=== PATIENT | female | born 1975 | race Caucasian/White ===

== ENCOUNTER 2025-03-07 22:24 | Emergency (ER) | payer MEDICARE, SELFPAY ==
--- OUTSIDE RECORDS SUMMARY | 2024-11-17 04:40 | XMS_ITS ---
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 Name Role Phone Octavio Arnold Primary Care Provider REASON FOR VISIT 4 week F/U Social History Sex Assigned At : Social History Observation Description Sex Assigned At Female Encounters Encounter Location Date Provider Diagnosis [address] [id number] 11/17/2024 Octavio Arnold Plan Of Treatment No Information Progress Notes * Jacinda ADAMSB:1975 (50 yo F)Acc No.[id number]:11/17/2024 UNLOCKED PROGRESS NOTE Patient: Janet TRONCOSO Provider: Karen Arnold DNP, REJI-SUJATA :1975 A ge:49 Y S ex:Female Date:11/17/2024 Address:[address] [place], [place] [id number] Subjective: * Chief Complaints: * 1 . 4 week F/U. * Medical History: Objective: * Vitals: Assessment: Plan: * Treatment: * * Electronic signature of Adonis Arnold APRN, [id number] on 03/08/2025 at 02:14 AM CDT Sign off status: Pending * Provider: Karen Arnold DNP, SIMIP-BC Date: 0 11/17/2024 Generated for Nic au/Yong/Bhaktismitting on: 1 02:14 AM CDT
--- NOTE | ~2025-03-07 | CT_ITS ---
EXAMINATION: CT lumbar spine wo con DATE: 03/08/2025 00:17 INDICATION: Low back injury. TECHNIQUE: Computed tomography (CT) of the lumbar spine was performed without intravenous contrast. Automated exposure control and iterative reconstruction technique were employed. The dose-length product was 264.04 mGy-cm. COMPARISON: None FINDINGS: There is a stent graft in abdominal aorta. There are cysts in right kidney measuring up to 3.0 cm. There is 6 degrees levocurvature of lumbar spine. There is a compression fracture of L2 with less than 1/5 loss of height. There is mildly decreased disc height at L2-L3. The following disc levels are specifically discussed: L1-L2: The disc is bulging. There is mild bilateral facet joint osteoarthritis. There is mild bilateral neural foraminal stenosis. There is mild central canal stenosis. L2-L3: The disc is bulging. There is mild bilateral facet joint osteoarthritis. There is mild bilateral neural foraminal stenosis. There is mild central canal stenosis. L3-L4: The disc is bulging. There is mild bilateral facet joint osteoarthritis. There is mild bilateral neural foraminal stenosis. There is mild central canal stenosis. L4-L5: The disc is bulging. There is severe bilateral facet joint osteoarthritis. There is mild bilateral neural foraminal stenosis. There is mild central canal stenosis. L5-S1: The disc is bulging. There is severe bilateral facet joint osteoarthritis. There is mild bilateral neural foraminal stenosis. There is mild central canal stenosis. IMPRESSION: 1. L2 compression fracture. I called this result to Dr. Fang. 2. Mild lumbar spondylosis. Reviewed, dictated and finalized at location E.
[2025-03-07 22:26] VITALS: BP 175/93; PULSE 117; RESP 18; TEMP 36.8; O2SAT 100
--- NOTE | 2025-03-08 00:07 | PC.NURSE ---
ERP verbalized order of CT without contrast of the spine. This RN ordered.
[2025-03-08] MEDS: HYDROcodone/acetaminophen (*CRX) 5-325 MG TABLET 1 TAB PO (01:11)
[2025-03-08] MEDS: KETOROLAC 10 MG TABLET PO (01:11)
--- OUTSIDE RECORDS SUMMARY | 2025-03-08 02:14 | XMS_ITS | Clinical Summary ---
Author Organization 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 Gender Identity Not on file Sexual Orientation Not on file Plan of Treatment Health Maintenance Due Date Last Done Comments Cervical Cancer Screening Pa p Smear (Age 30 to 64) Every 3 Years 1974 Colorectal Cancer Screening Colonoscopy (10 Years) 1974 Annual Physical 1977 Hepatitis C 01/29/1992 DTaP, Tdap and Td Vaccines ( 1 - Tdap) 1993 Hepatitis B Vaccines (1 of 3 - 19+ 3-dose series) 1993 Cervical Cancer Screening Pa p with HPV Testing (Age 30 to 64) Every 5 Years 01/29/2004 Cervical Cancer Screening with HPV 01/29/2004 Mammogram Screening 2014 Pneumococcal Vaccine: 50+ Ye ars (1 of 1 - PCV) 01/29/2024 Zoster Vaccines (1 of 2) 01/29/2024 COVID-19 Vaccine ( - 2023-2 5 season) 2025 Influenza Adult (#1) 2025 Meningococcal B Vaccine Aged Out No l onger eligible based on patient's age to complete this topic Meningococcal Vaccine Aged Out No zach nichole eligible based on patient's age to complete this topic RSV Immunizations Under 20 Months Aged Out No longer eligible based on patient's age to complete this topic Insurance 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
--- OUTSIDE RECORDS SUMMARY | 2025-03-08 02:15 | XMS_ITS | Data Portability ---
Author Organization [place] - [employer], Main Office Address [address] [place] [address] Care Team Providers Care Route Sales Manager Name Role Phone MARIO GARCIA Primary Care Provider [phone] MARIO GARCIA Referring Provider HODA MILLER Podiatry Doctor Assessment Encounter Date Assessment Date Assessment LastModified by Organization Details LastModified Time 09/11/2022 09/11/2022 HPI: 47-year-old female came in today for evaluation of her left shoulder pain and arm pain. Patient has been having symptoms in the left shoulder for about 6 months that have progressively worsened. She has noticed that the shoulder is more painful as well as more staff. She notes she is lacking range of motion in the shoulder and it is painful with range of motion. She has also been having some symptoms of pain radiating down the arm into the fingers. She will have some tingling in the fingers. She has been waking up with her left hand asleep 2 or 3 times a week at this point. she feels that all 5 of her fingers feel asleep. She will occasionally get the symptoms during the day. Patient is unable to take anti-inflammator ies because she is on Plavix chronically due to stents placed in her iliac artery on the left in the past. Patient states that she was seen for this left shoulder in the past and was told she may have some early tearing of the rotator. Looking back at her x-rays I do see an MRI scan just x-rays that were done 2016 in the shoulder. Patient has had no trauma or injury to the left shoulder. She was having no symptoms in the shoulder and till they spontaneously started 6 months ago. Physical exam: 47-year-old female she has active elevation left shoulder to 135 external rotation is to 45 internal rotation is to the left buttocks. In comparison her right shoulder she elevates to 150 externally rotates to 90 internally rotates to T10. With range of motion left shoulder she has moderate pain. She has some mild weakness with external rotation well as abduction strength testing associated with moderate pain. Neck has full range of motion without discomfort. Negative Spurling's maneuver. Has a negative Tinel's over the median nerve as well as the cubital tunnel. She does have a mildly positive carpal compression test on left. 2+ radial pulse. She has normal sensation to light touch to all of her fingers in the left hand as well as her forearm. Impression: 47-year-old female who has a left frozen shoulder. She is diabetic which predispose her to this. Discussed with the etiology of frozen shoulder With her. As an issue management for the frozen shoulder have recommended fluoroscopic guided injection into the glenohumeral joint and formal physical therapy to start about a week after that. We will set these with was up for her. Patient also has mild symptoms and physical exam findings of early carpal tunnel. She notes that she is waking with her hand asleep and I recommended initially tried a cock-up wrist splint at night to see if this improves her symptoms. The other possibility is that she may be having some radicular symptoms from the neck but on physical exam today that is very benign. Certainly having the stiff shoulder could aggravate the neck due to the patient compensating for the stiffness in the shoulder and overuse of the neck as well. I think at this point getting her improved from the frozen shoulder is 1st and then re-examining how she is doing after that and proceed from there. If she continues to have weakness in the shoulder once the stiffness has been improved upon the next step would be obtaining an MRI scan of the shoulder. If she continues to have symptoms down the entire arm and continues had numbness tingling in the fingers may need to proceed with EMG study as well as MRI scan of the. We will see her back in 4 weeks reassessment. 30 minutes was spent treatment patient more half of this in [id number] conversation. [email or web address] Not available 09/11/2022 13:04:25 10/09/2022 10/09/2022 patient returns. She presented on 09/11/2022 and saw Pankaj Hastings. She had pronounced decrease in range of motion particularly internal rotation of the left shoulder with clinical appearance of adhesive capsulitis. She does have diabetes mellitus. She does not take nonsteroidal anti-inflammator y medication because of chronic kidney disease. A fluoroscopic guided cortisone injection was performed on September 22. Images documented intra-articular placement of the needle and unfortunately she had no relief the pain with this injection. She had 1 visit of physical therapy this morning her 1st visit. She was given a cock-up splint to wear at night for possible carpal tunnel syndrome and she has not noticed as much numbness at night. She is still having difficulty sleeping because of her shoulder pain. Her chief complaint her worst pain is in the lateral shoulder. Second worst medial clavicle 3rd worst trapezius to the base of her neck 4th the posterior scapular region and sometimes the pain will shoot down her arm from her shoulder to all fingers and she will noted tingling in all 5 fingers. She does notice tingling anywhere else. I asked her to pay attention to which fingers she notes tingling when she feels is I which fingers seem to be the endpoint of her pain when her pain radiates to the fingers which can be helpful particularly if there is a radiculopathy consideration. Patient did have an MRI scan of her cervical spine in 2016 with loss of cervical lordosis and no significant central canal is stenosis or severe degenerative disc disease On exam today she had elevation 140 passively with rather severe pain in the posterior rotator cuff area. The same with external rotation to 50 and internal rotation to the buttock. Her range of motion is identical to 1 week ago. She had normal light touch sensation throughout the left upper extremity including the fingertips today. Negative Tinel's over the median nerve today negative carpal tunnel compression negative Phalen's. Neck range of motion with full extension and Spurling's to the left cause some soreness at the left base of her neck. No tingling or dysesthesias into the left shoulder or left upper extremity. She had moderately severe tenderness over the anterior lateral and posterior subdeltoid bursa on palpation no redness swelling or warmth. Impression: Patient presents with adhesive capsulitis symptoms and there may be a rotator cuff tendinitis component as well. She has had a cortisone shot in the left shoulder for rotator cuff tendinitis symptoms and partial tear approximately 6 years ago she recalls. I have recommended trying a cortisone shot in the subacromial space today. Studies show that injection of the subacromial space is sometimes necessary for treatment of frozen shoulder and I think that would be the case here. I have discussed risk of side effects including the risk of infection and that her blood sugars may go up for a few days following the injection. After ChloraPrep prep 20 mg of Kenalog and 4 cc of 0.5% ropivacaine were injected in the subacromial space successfully and I can not feel the subdeltoid bursa bulge anteriorly and laterally with the injection and 5 minutes after the injection I could passively elevate her shoulder to 150 with only mild discomfort with seem to give in immediate positive response. She is scheduled to resume physical therapy next week. I will see her back in 6 weeks assess her progress with this. 30 minutes were spent in total care this patient more than half the time spent in [id number] care. Not available 10/09/2022 14:34:13 11/27/2022 11/27/2022 patient returns for follow-up of her left shoulder. She was seen 6 weeks ago with the presumed diagnosis of adhesive capsulitis left shoulder. A cortisone shot 6 weeks ago In the subacromial space did help her pain substantially but 2 weeks ago her pain recurred. She continues to have difficulty reaching overhead reaching around her back and still can not lay on the left shoulder. Some days she has constant pain all day and she also has pain lifting. On exam today she had active elevation 135 passed to 150 internal rotation was L4 with pain, external rotation was to 60 without significant pain. Adduction is difficult for her and that she could not do a bear hug test very well as a result because of pain trying to do so. She has mild weakness with thumbs down abduction strength testing normal external rotation strength testing. She could not do a subscap liftoff to tightness. There is no redness swelling or warmth about the shoulder Impression: Differential diagnosis includes persistent adhesive capsulitis but also includes other pathology such as rotator cuff tear. I have recommended obtaining an MRI scan left shoulder. I will see her back after the test. 20 minutes were spent in total care this patient more than half this time spent in [id number] care. Not available 12/08/2022 13:47:01 Plan of Treatment Reminders Order Date Submit Date Provider Last Modified By Organization Details Last Modified Time Details Appointments None recorded. Lab lipid panel, serum 2022 023 [email or web address] [facility], [address] [place], [address], 3 17:38:50 TSH + free T4, serum 2022 023 [email or web address] [facility], [address] [place], [address], 3 17:38:50 HbA1c (hemoglobi n A1c), blood 2022 023 [facility], [address] [place], [address], 3 02:24:29 CMP, serum or plasma 2022 023 [facility], [address] [place], [address], 3 15:46:14 microalbum in/creatin ine, mass ratio, urine 2022 023 [facility], [address] [place], [address], 3 14:11:45 Referral physical therapist referral - * START A WEEK AFTER FLUORO INJECTION [email or web address] [facility], [address] [place], [address], 3 16:26:24 Procedures injection/ aspiration joint/burs a (PROC) - in office procedure, administer ed by provider 2022 023 [email or web address] In-Office Order, Internal Use Only DO Not Attach Compendium DO Not Attach Compendium, Do Not Delete/merge, [address] 3 14:48:59 fluoroscop ic guided injection (PROC) - L-GLENOHUM ERAL JOINT WITH 80MG DEPOMEDROL AND 4CC 1% LIDOCAINE 2022 023 [facility] ([facility] Scheduling), [address] [facility], [place], [place], [address], 3 10:10:32 Surgeries None recorded. Imaging XR, shoulder [address], [address] [facility], [address], [place], [address], 3 15:42:53 bone density 2022 023 [facility], [address] [facility], [place], [place], [address], 3 13:00:20 Medication Orders Kenalog 10 mg/mL suspension for injection [address] [id number], [address] , [place], [place], [id number], 3 16:44:43 ropivacain e (PF) 5 mg/mL (0.5 %) injection solution [address] [id number], [address], [place], [place], [id number], 3 16:44:43 Trulicity 1.5 mg/0.5 mL subcutaneo us pen injector 2022 023 [id number], [address], [place], [place], [id number], 3 15:47:23 Gvoke HypoPen 2-Pack 1 mg/0.2 mL subcutaneo us auto-injec tor 2022 023 [id number], [address], [place], [place], [id number], 15:55:12 Patient TargetsNo targets recorded. Patient InstructionsNo instructions recorded. Reason for Referral Physical Therapist Referral for Adhesive capsulitis of left shoulder * START A WEEK AFTER FLUORO INJECTION Referring Physician: Bill Hastings, Orthopedic Surgery, Encounter Date: 09/11/2022 Results Created Date Observation Date Name Description Value Unit Range Abnormal Flag Note LastModifiedBy Organization Detail LastModifiedTime 08/29/1908/28/2022 COMPR EHENS KEVEN METAB OLIC PANEL sodium 137 mmol/ L 137-14 5 Not Available [facility] (Lab) [address] [place], [address], 08/28/2022 15:46:14 08/29/1908/28/2022 COMPR EHENS KEVEN METAB OLIC PANEL potassium 4.5 mmol/ L 3.5-5. 1 Not Available [facility] (Lab) [address] [place], [address], 08/28/2022 15:46:14 08/29/1908/28/2022 COMPR EHENS KEVEN METAB OLIC PANEL chloride 101 mmol/ L 98-[address] [facility] (Lab) [address] [place], [address], 08/28/2022 15:46:14 08/29/1908/28/2022 COMPR EHENS KEVEN METAB OLIC PANEL carbon dioxide 27 mmol/ L 22-[address] [facility] (Lab) [address] [place], [address], 08/28/2022 15:46:14 08/29/1908/28/2022 COMPR EHENS KEVEN METAB OLIC PANEL anion gap 13.5 mmol/ L 14-[address] [facility] (Lab) [address] [place], [address], 08/28/2022 15:46:14 08/29/1908/28/2022 COMPR EHENS KEVEN METAB OLIC PANEL glucose 159 mg/dL 70-[address] [facility] (Lab) [address] [place], [address], 08/28/2022 15:46:14 08/29/19 23 08/28/2022 COMPR EHENS KEVEN METAB OLIC PANEL BUN 14 mg/dL 8-[address] [facility] (Lab) [address] [place], [address], 08/28/2022 15:46:14 08/29/1908/28/2022 COMPR EHENS KEVEN METAB OLIC PANEL creatinine 1.28 mg/dL 0.66-1 [address] [facility] (Lab) [address] [place], [address], 08/28/2022 15:46:14 08/29/1908/28/2022 COMPR EHENS KEVEN METAB OLIC PANEL GFR 45 Refer ence Range : [place] ge GFR Healt hy Adult : >60 mL/mi n/1.7 3 m2 Chron ic Kidne y Disea se: 15-60 mL/mi n/1.7 3 m2 Kidne y Failu re: <15/m L/min /1.73 m2 www.n iddk. nih.g ov The MDRD study equat ion has not been valid ated in child bela <18 years of age; pregn ant women ; the elder ly >85 years of age; or in some racia l or ethni c subgr oups, such as Hispa nics. Outsi de the valid ated kyler eters , estim ated GFR is less accur ate, requi ring clini jaleesa judgm ent on a case- by-ca se basis . Clini jaleesa inter preta tion for other races and ages must be made by the clini paxton. The MDRD study equat ion has not been valid ated for the evalu ation of serum creat inine relat ed to nutri marsha l statu s or medic ation usage . For perso ns <18 years of age, a pedia tric GFR calcu lator is avail able on the [facility] websi te: https ://joe rosales.lbanca pizarro/earl aguiar s/kdo qi/gf r_cal culat or Not Available [facility] (Lab) [address] [place], [address], 08/28/2022 15:46:14 08/29/19 23 08/28/2022 COMPR EHENS KEVEN METAB OLIC PANEL alkaline phosphatase 76 U/L 38-126 Not Available [facility] (Lab) [address] [place], [address], 08/28/2022 15:46:14 08/29/19 23 08/28/2022 COMPR EHENS KEVEN METAB OLIC PANEL alanine aminotransfe rase 21 U/L 0-35 Not Available [facility] (Lab) [address] [place], [address], 08/28/2022 15:46:14 08/29/19 23 08/28/2022 COMPR EHENS KEVEN METAB OLIC PANEL aspartate aminotransfe rase 22 U/L 15-37 Not Available [facility] (Lab) [address] [place], [address], 08/28/2022 15:46:14 08/29/19 23 08/28/2022 COMPR EHENS KEVEN METAB OLIC PANEL bilirubin, total 0.20 mg/dL 0.20-[address] [facility] (Lab) [address] [place], [address], 08/28/2022 15:46:14 08/29/19 23 08/28/2022 COMPR EHENS KEVEN METAB OLIC PANEL calcium 9.2 mg/dL 8.4-[address] [facility] (Lab) [address] [place], [address], 08/28/2022 15:46:14 08/29/19 23 08/28/2022 COMPR EHENS KEVEN METAB OLIC PANEL total protein 6.8 g/dL 6.3-8. [address] [facility] (Lab) [address] [place], [address], 08/28/2022 15:46:14 08/29/19 23 08/28/2022 COMPR EHENS KEVEN METAB OLIC PANEL albumin 4.0 g/dL 3.4-5. [address] [facility] (Lab) [address] [place], [address], 08/28/2022 15:46:14 08/29/19 23 08/28/2022 COMPR EHENS KEVEN METAB OLIC PANEL globulin 2.8 g/dL 2.6-4. [address] [facility] (Lab) [address] [place], [address], 08/28/2022 15:46:14 08/29/19 23 08/28/2022 COMPR EHENS KEVEN METAB OLIC PANEL A/G ratio 1.4 ratio 1.0-2. [address] [facility] (Lab) [address] [place], [address], 08/28/2022 15:46:14 08/29/19 23 08/28/2022 LIPID PANEL cholesterol 142 mg/dL 140-19 9 NIH JOAN NSUS RECOM MENDA TION FOR BETH STERO L: ADULT CHILD LOW RISK: <200 <170 BORDE RLINE : <200- 239 ----- HIGH RISK: >240 >[address] [facility] (Lab) [address] [place], [address], 08/28/2022 15:46:17 08/29/1908/28/2022 LIPID PANEL triglyceride s 144 mg/dL 0-150 NIH JOAN NSUS REPOR T RECOM MENDA TION FOR TRIGL YCERI GERMAINE: ADULT CHILD LOW RISK: <150 ----- BODER LINE: 150-1 99 ----- HIGH RISK: >200 ----- Not Available [facility] (Lab) [address] [place], [address], 08/28/2022 15:46:17 08/29/1908/28/2022 LIPID PANEL HDL cholesterol 54 mg/dL 40- Not Available [facility] (Lab) [address] [place], [address], 08/28/2022 15:46:17 08/29/1908/28/2022 LIPID PANEL LDL cholesterol, calculated 59 mg/dL 0-130 NIH JOAN NSUS REPOR T RECOM MENDA TIONS FOR LDL: ADULT CHILD LOW RISK <130 <110 (OPTI MAL LDL) <100 ----- SP RLINE : 130-1 59 ----- HIGH RISK: >160 >130 A TRIGL YCERI DE RESUL T >400 INVAL IDATE S THE CALCU LATIO N FOR LDL FRACT IONAT ION - THE LDL RESUL T WILL NOT BE REPOR JULIO C. Not Available [facility] (Lab) [address] [place], [address], 08/28/2022 15:46:17 08/29/1908/28/2022 MICRO ALBUM IN RANDO M URINE microalbumin , urine 10.3 mg/L 0.0-[address] [facility] (Lab) [address] [place], [address], 08/28/2022 16:44:34 08/29/1908/28/2022 T4 FREE free T4 0.87 NG/dL 0.78-[address] [facility] (Lab) [address] [place], [address], 08/28/2022 17:14:07 08/29/1908/28/2022 TSH thyroid-stim ulating hormone 1.770 uIU/m L 0.465- 4.[address] [facility] (Lab) [address] [place], [address], 08/28/2022 17:26:15 08/29/19 23 08/28/2022 HEMOG LOBIN A1C HA1C 7.6 % 4.0-6. 0 high Diabe marion Alfonzo he Crite maury: <5.7% Consi stent with absen ce of diabe marion 5.7-6 .4% Consi stent with incre ased risk for diabe marion (pred iabet es) >OR=6 .5% Consi stent with diabe marion REFER ENCE: Diabe marion Care 2016, 39(Robertson ppl.1 ):s13 -s22 [address] [facility] ([facility]) [address] [place], [address], 08/28/2022 19:57:54 09/09/19 23 09/08/2022 DEXA, axial skele ton [facility] [address] [place] [address] Patien t Name: JANET ADAMS Access ion #: [id number] Sex: F : 1974 8 Locati on: RAD Attend ing Physic bj: DORIAN JAY Orderi ng Physic bj: DORIAN JAY Exam Date: 09/09/19 10:35 AM Exam Name: XR DEXA-H IPS PELVIS SPINE Admitt ing Diagno sis(es ): RADIOL OGY REPORT - FINAL EXAM: XR DEXA-H IPS PELVIS SPINE HISTOR Y: MENOPA USAL 47-yea r-old female with osteop orosis screen ing. COMPAR DAISY: None availa ble. TECHNI QUE: Dual energy x-ray of absorp tion examin ation of the bilate ral hips and lumbar spine in AP projec tion was perfor med. FINDIN GS: Lumbar Spine (L1-L4 ): The mean bone minera l densit y is 1.024 g/cm2 hydrox yapati te, correl ating with a T-scor e of -1.4. Bilate ral hips: The mean bone minera l densit y is 0.810 g/cm2 calciu m hydrox yapati te, correl ating with a T-scor e of -1.6. Page 1 of 2 [facility] Patimargo t Name: JANET ADAMS Access ion #: [id number] Sex: F : 1974 8 Exam Date: 09/09/19 10:35 AM Exam Name: XR DEXA-H IPS PELVIS SPINE Admitt ing Diagno sis(es ): IMPRES SEKOU: 1. The patien t's lumbar spine T-scor e is consis tent with osteop enia. 2. The patien t's bilate ral hip T-scor e is consis tent with osteop enia. Accord ing to the World [employer] Organi zation , T-scor e values greate r than -1.0 are normal , values betwee n -1.0 and -2.5 are catego rized as osteop enia, T-scor e of -2.5 or more are catego rized as osteop orosis . Create d and electr onical ly signed by: Alan donohue MD Signed Date: 09/09/19 11:55 AM (CT) Dictat ed by: Alan donohue MD (CT) (CT) Page 2 of 2 [facility] (Imaging) [address] [place], [address], 09/12/2022 17:41:17 09/09/19 23 09/08/2022 bone densi ty No observ ation record ed. [facility] [address] [place], [address], 09/12/2022 17:41:18 09/12/19 XR, shoul alonso No observ ation record ed. [email or web address] s_gmg [facility] [address] [facility], [address], [place], [address], 09/11/2022 12:57:30 09/23/19 23 09/22/2022 inj large jnt hip knee [facility] [address], [place] [address] [phone] Tigre akers Name: JANET ADAMS Access ion #: [id number] Sex: F : 1974 5 Locati on: RAD Attend ing Physic bj: DYLAN FITZGERALD Orderi ng Physic bj: DYLAN FITZGERALD Exam Date: 023 9:33 AM Exam Name: XR INJ LG JNT HIP/KN EE/SERAFIN ULDR Admitt ing Diagno sis(es ): RADIOL OGY REPORT - FINAL EXAM: XR INJ LG JNT HIP/KN EE/SERAFIN ULDR HISTOR Y: ADHESI VE CAPSUL ITIS OF right should er, pain COMPAR DAISY: None. TECHNI QUE: CONTRA ST: 2.0ML of Isovue -300 intra- articu lar. Fluoro time: 0.8 minute ; DAP: 0.389 Gy.cm2 ; 5 cine spot views were perfor med demons tratin g contra st within the intra- articu lar space was saved. Inject ate: 4 mL 1% lidoca ine, 80 mg Depo-M edrol EXPLAN ATION: Risks and benefi ts of the proced ure were discus sed with the patien t, includ ing risks of bleedi ng, infect ion, and allerg ic reacti on. The Page 1 of 3 [facility] Tigre t Name: JANET ADAMS Access ion #: [id number] Sex: F : 1974 5 Exam Date: 023 9:33 AM Exam Name: XR INJ LG JNT HIP/KN EE/SERAFIN ULDR Admitt ing Diagno sis(es ): patimargo t agreed to procee d and gave inform ed consen t. Pain relief was not guaran teed. The skin of the left should er was marked with a marker , and the patien t agreed that this was the correc t should er. Time-o ut was perfor med. PROCED URE: The patien t was place in supine positi on on the fluoro scopy table. The left should er was evalua julio c fluoro scopic ally and arm was positi oned with the should er in the eyelet operator al rotati on. The skin of the anteri or aspect of the left should er was preppe d and draped steril nasreen with Chlora Prep. The skin and subcut aneous tissue s were anesth etized with 3.0 mL 1% lidoca ine withou t epinep hrine. A 22 gauge spinal needle was advanc ed under fluoro scopic guidan ce into the left glenoh umeral joint. Test inject ion of Isovue [address] was used to confir m intra- articu lar placem ent. Fluoro scopic C-arm image was saved. The therap eutic mixtur e was then inject ed into the glenoh umeral joint. The needle was remove d. The skin was cleans ed, and a small bandag e was placed . The patien t tolera julio c the proced ure well, and there were no immedi ate compli cation s. IMPRES SEKOU: 1. Succes sful left should er therap y glenoh umeral intra- articu lar contra st inject ion under fluoro scopic guidan ce. Follow ing the proced ure the patien t stated that her range of motion had signif icantl y improv ed and her pain was absent . Create d and electr onical ly signed by: Sin jaramillo MD Signed Date: 2:14 PM (CT) Dictat ed by: Sin jaramillo MD Page 2 of 3 [facility] Tigre akers Name: JANET ADAMS Access ion #: [id number] Sex: F : 1974 5 Exam Date: 9:33 AM Exam Name: XR INJ LG JNT HIP/KN EE/SERAFIN ULDR Admitt ing Diagno sis(es ): DD: 2:14 PM (CT) DT: 2:14 PM (CT) Page [email or web address] [facility] (Imaging) [address] [place], [address], 09/23/2022 10:58:36 Result Notes Documentation Provider Name and Address Organization Details Recorded Time Dexa, Axial Skeleton : [facility] [address] [place] [address] Patient Name: JANET ADAMS Sex: F : 1975 Location: [facility] Attending Physician: DORIAN JAY Ordering Physician: DORIAN JAY Exam Date: 09/08/2022 10:35 AM Exam Name: XR DEXA-HIPS PELVIS SPINE Admitting Diagnosis(es): RADIOLOGY REPORT - FINAL EXAM: XR DEXA-HIPS PELVIS SPINE HISTORY: MENOPAUSAL 47-year-old female with osteoporosis screening. COMPARISON: None available. TECHNIQUE: Dual energy x-ray of absorption examination of the bilateral hips and lumbar spine in AP projection was performed. FINDINGS: Lumbar Spine (L1-L4): The mean bone mineral density is 1.024 g/cm2 hydroxyapatite, correlating with a T-score of -1.4. Bilateral hips: The mean bone mineral density is 0.810 g/cm2 calcium hydroxyapatite, correlating with a T-score of -1.6. Page 1 of 2 [facility] Patient Name: JANET ADAMS Sex: F : 1975 Exam Date: 09/08/2022 10:35 AM Exam Name: XR DEXA-HIPS PELVIS SPINE Admitting Diagnosis(es): IMPRESSION: 1. The patient's lumbar spine T-score is consistent with osteopenia. 2. The patient's bilateral hip T-score is consistent with osteopenia. According to the World Health Organization, T-score values greater than -1.0 are normal, values between -1.0 and -2.5 are categorized as osteopenia, T-score of -2.5 or more are categorized as osteoporosis. 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 Not Available [facility] 3 10:46:59 Tobacco dependence syndrome 01149303 Active Not Available [facility] 3 10:46:59 Vitamin D deficiency 52189934 Active 2021 Not Available [facility] 3 10:46:58 Dyslipidem ia 821745019 Active 2021 Not Available [facility] 3 10:46:58 Chronic kidney disease stage 3 989864144 Active 2021 Not Available [facility] 3 10:46:59 Type 2 diabetes mellitus 35195922 Active 2021 Not Available [facility] 3 10:46:59 Uncontroll ed type 2 diabetes mellitus 654571504 Active 2022 Dorian Jay MD [address], [place] [address], [place], [address] , [employer] 3 15:42:07 Hyperlipid emia 21304236 Active 2022 Alanna jimenez, [employer] [facility] [employer] 3 10:27:59 Weight gain 8336750 Active 2022 Dorian Jay MD [address], [facility] [address], [place], [address] , [employer] [facility] [employer] 3 11:50:25 Pain of left shoulder joint 2108940157118 9109 Active 2022 ABDOUL Alvarenga, [facility] 3 11:32:08 Adhesive capsulitis of left shoulder 5023474593340 07 Active 2022 Felipa jimenez [facility] [employer] [facility] 3 12:20:18 Problem Notes None recorded. Procedures Surgical History Date Name Laterality Status Provider Name and Address Organization Details Recorded Time hysterectomy completed ABDOUL Alvarenga [facility] [employer] [facility] 09/11/2022 11:31:19 Imaging Results None recorded. Procedure Notes None recorded. Medical Equipment None Reported. Allergies Allergen ID Allergen Name Allergen Category Reaction Reaction Severity Criticality Documentation Date Start Date Code Code System Note Provider Name and Address Organization Details Recorded Time 73384 Substance with sulfonami de structure and antibacte rial mechanism of action (substanc e) medicatio n Not available Not available Not available 08/06/2022 31826 8003 SNOMED Not Available [facility] 3 10:52:23 54831 naproxen medicatio n Not available Not available Not available 08/06/2022 7258 RxNorm Not Available [facility] 3 10:52:23 86050 Effexor medicatio n Not available Not available Not available 08/06/2022 76766 2 RxNorm Not Available [facility] 3 10:52:23 Medications Name Sig Start Date Stop Date Status Note LastModified by Organization Details LastModified Time losartan 50 mg tablet Take 1 tablet every day by oral route. active Not Available Not Available No t Available fluoxetine 40 mg capsule Take 1 capsule every day by oral route. active Not Available Not Available No t Available amoxicillin 500 mg capsule 02/24 completed Not Available Not Available Not Available isosorbide dinitrate 10 mg tablet active Not Available Not Available Not Available lamotrigine 150 mg tablet Take 1 tablet twice a day by oral route. active Not Available Not Available No t Available metformin 500 mg tablet Take 1 tablet every day by oral route. 2021 active Not Available Not Available Not Avai lable neomycin-po lymyxin-hyd rocort 3.5 mg/mL-10,00 0 unit/mL-1 % ear solution 07/15 completed Not Available Not Available Not Available atorvastati n 20 mg tablet TK 1 T PO QD active Not Available Not Available No t Available atorvastati n 10 mg tablet 02/24 completed Not Available Not Available Not Available azithromyci n 250 mg tablet 02/24 completed Not Available Not Available Not Available hydrocodone 5 mg-acetamin ophen 325 mg tablet 07/15 completed Not Available Not Available Not Available atenolol 50 mg-chlortha lidone 25 mg tablet TK 1 T PO QD UTD 07/15 completed Not Available Not Available Not Available Lantus U-100 Insulin 100 unit/mL subcutaneou s solution Inject 28 units every day by subcutane ous route. active Not Available Not Available No t Available topiramate 25 mg tablet Take 1 tablet every day by oral route. 09/11 completed Not Available Not Available Not Available clopidogrel 75 mg tablet Take 1 tablet every day by oral route. active Not Available Not Available No t Available amlodipine 5 mg tablet TK 1 T PO QD 07/15 completed Not Available Not Available Not Available omeprazole 40 mg capsule,del ayed release 09/11 completed Not Available Not Available Not Available aspirin 81 mg tablet,arin yed release TK 1 T PO QD UTD active Not Available Not Available No t Available tramadol 50 mg tablet TAKE 1 TABLET BY MOUTH TWICE DAILY 02/24 completed Not Available Not Available Not Available ondansetron 8 mg disintegrat ing tablet active Not Available Not Available N ot Available oxycodone-a cetaminophe n 5 mg-325 mg tablet TK 1 T PO FOR MILD TO MODERATE PAIN OR 2 TS FOR SEVERE PAIN Q 4 H PRN 02/24 completed Not Available Not Available Not Available alprazolam 0.5 mg tablet active Not Available Not Available Not Available famotidine 20 mg tablet active Not Available Not Available Not Available trazodone 100 mg tablet active Not Available Not Available Not Available Humalog U-100 Insulin 100 unit/mL subcutaneou s solution active Not Available Not Available N ot Available Kenalog 10 mg/mL suspension for injection in office procedure , administe red by provider [address] [facility]: [phone] Not Available Not Available Not Available dexamethaso ne 1 mg tablet take dexa tablet at 10 pm night before 8 am cortisol active Not Available Not Available No t Available benzonatate 100 mg capsule 07/15 completed Not Available Not Available Not Available naproxen sodium 550 mg tablet 07/15 completed Not Available Not Available Not Available trazodone 150 mg tablet Take 1 tablet every day by oral route. active Not Available Not Available No t Available buspirone 30 mg tablet Take 1 tablet twice a day by oral route. active Not Available Not Available No t Available diclofenac sodium 75 mg tablet,arin yed release 07/15 completed Not Available Not Available Not Available bisacodyl 5 mg tablet,arin yed release active Not Available Not Available Not Available diclofenac sodium 50 mg tablet,arin yed release 07/15 completed Not Available Not Available Not Available ibuprofen 600 mg tablet TK 1 T PO TID WF 07/15 completed Not Available Not Available Not Available polyethylen e glycol 3350 17 gram/dose oral powder active Not Available Not Available Not Available fluoxetine 20 mg capsule Take 1 capsule every day by oral route. active Not Available Not Available No t Available metformin ER 500 mg tablet,exte nded release 24 hr active Not Available Not Available Not Available metaxalone 800 mg tablet TK 1 T PO TID PRN 07/15 completed Not Available Not Available Not Available aripiprazol e 15 mg tablet 09/11 completed Not Available Not Available Not Available Alcohol Prep Pads active Not Available Not Available No t Available cholecalcif wilfredo (vitamin D3) 50 mcg (2,000 unit) capsule active Not Available Not Available Not Available Micro Thin Lancets 33 gauge 07/15 completed Not Available Not Available Not Available lurasidone 40 mg tablet active Not Available Not Available Not Available ropivacaine (PF) 5 mg/mL (0.5 %) injection solution in office procedure , administe red by provider [address] [facility] [phone] -[phone] Not Available Not Available Not Available Latuda 20 mg tablet active Not Available Not Available No t Available tramadol ER 150 mg capsule 24h,extende d release(25- 75) Take 1 capsule every day by oral route. 02/24 completed Not Available Not Available Not Available TRUEplus Insulin 1 mL 31 gauge x 5/16 syringe active Not Available Not Available Not Available lurasidone 60 mg tablet active Not Available Not Available Not Available Jardiance 25 mg tablet Take 1 tablet every day by oral route. active Not Available Not Available No t Available True Metrix Glucose Test Strip 07/15 completed Not Available Not Available Not Available True Metrix Glucose Meter TEST THREE TIMES A WEEK 07/15 completed Not Available Not Available Not Available Trulicity 1.5 mg/0.5 mL subcutaneou s pen injector Inject 1.5 mg every week by subcutane ous route at dinner for 90 days. 2022 active Not Available Not Available Not Avai lable Trulicity 0.75 mg/0.5 mL subcutaneou s pen injector ADMINISTE R 0.75 MG UNDER THE SKIN EVERY WEEK active Not Available Not Available No t Available [employer] HypoPen 2-Pack 1 mg/0.2 mL subcutaneou s auto-inject or Inject 1 mg as needed by subcutane ous route as needed for 1 day. active Not Available Not Available No t Available Vitals Date Recorded Body height Body mass index (BMI) Body weight Body temperature Heart rate Respiratory rate Systolic And Diastolic Provider Name and Address Organization Details Last Updated DateTime 144.78 cm 30.1 kg/m2 57762.3 4 g 97.2 [degF] 96 /min 17 /min 138/74 mm[Hg] Joellen Fabian [facility] [address] [employer] 15:18:38 Date Recorded Body height Body mass index (BMI) Body weight Provider Name and Address Organization Details Last Updated DateTime 09/11/2022 147.32 cm 28 kg/m2 69984.38 g Mirna Madison [facility] [employer] 09/11/2022 11:34:24 Date Recorded Body height Provider Name an d Address Organization Details Last Updated DateTime 10/09/2022 147.32 cm Mirna Madison [facility] [employer] 10/09/2022 14:01:58 Date Recorded Body height Provider Name an d Address Organization Details Last Updated DateTime 11/27/2022 147.32 cm Mirna Madison [facility] [employer] 11/27/2022 12:06:01 Date Recorded Body mass index (BMI) Body height Oxygen saturation Oxygen saturation in Arterial blood by Pulse oximetry Heart rate Body weight Systolic And Diastolic Provider Name and Address Organization Details Last Updated DateTime 2 30 kg/m2 144.78 cm 95 % 95 % 74 /min 74332.6 2 g 120/80 mm[Hg] Not Available [employer] 3 10:46:22 Social History Question Answer Notes LastModified by [employer] Details LastModified Time Tobacco Smoking Status Former Smoker Alanna ROSITA [facility] 08/07/2022 15:05:04 What Is Your Level Of Caffeine Consumption? Moderate [id number] Information not available 08/06/2022 What Type Of Diet Are You Following? DIABETIC [id number] Information not available 08/06/2022 What Is Your Relationship Status? [id number] Information not available 08/06/2022 Do You Have Any Dietary Restrictions? No [email or web address] Information not available 08/07/2022 Sex: Female Functional Status Question Answer Note LastModified by [employer] Details LastModified Time What is your level of alcohol consumption? None [id number] Information not available 08/06/2022 What is your exercise level? Occasional [id number] Information not available 08/06/2022 Mental Status None recorded. Family History Relationship Description Onset Age of this Age Resolved Age Notes LastModified by Organization Details LastModified Time Mother Family history of malignant neoplasm [email or web address] Not available 2022 11:30:27 Mother Hypertensive disorder [email or web address] Not available 2022 11:30:44 Father Hypertensive disorder [email or web address] Not available 2022 11:30:44 Medical History Condition Response HIGH CHOLESTEROL / HYPERLIPIDEMIA Y EYE PROBLEMS Y GERD/NAUSEA Y DIABETES, TYPE Y GOUT Y HEADACHES/MIGRAINES Y KIDNEY DISEASE Y HYPERTENSION Y Gynecological HistoryNo gynecological history recorded. Obstetrics History GPAL:G 0 P 0 0 0 0 Past Encounters Encounter ID Performer Location Encounter Start Date Encounter Closed Date Diagnosis/Indication Diagnosis SNOMED-CT Code Diagnosis ICD10 Code Diagnosis IMO Codes Diagnosis Note [id number] [facility] [address] [place] [address] 02/24/2022 00:00:00 02/24/2022 12:50:54 [id number] Dorian Jay MD [facility] [address] [place] [address] 08/07/2022 14:55:10 08/07/2022 15:54:35 Uncontrolled type 2 diabetes mellitus 147689316 E11.65 A1C of 7.5% down from 10.2%- patient having hyperglyce francisco javier in mid to late afternoon unrelated to meals likey due to lantus wearing off. Will transition to twice daily lantus at 13 units in morning and 16 units at bedtime and patient advised to titrate up by 3 units every 4 days until fasting glucose is running 90-120 mg/dL consistent ly. She was advised to follow a 1:8 carb ratio for her meals if she is eating a starchy carb diet in addition to correction of 1U:50>150 mg/dl on premeal FS prior to meals. Continue trulicity 1.5 mg SQ weekly with large meal. Send in [facility] for hypoglycem ia rescue. Dyslipidemia 797003793 E 78.5 Continue on statin therapy. Postmenopausal state 764 44995 Z78.0 Send for bone density scan to screen for bone loss- had early hysterecto my in her 20s. Spent up to 28 minutes preparing to see the patient (eg, review of tests), obtaining and/or reviewing separately obtained history, performing a medically appropriat e examinatio n and evaluation , counseling and educating the patient, ordering medication s, tests, along with documentin g clinical informatio n in the electronic health record, independen tly interpreti ng results and communicat ing results to the patient. RTC in 3-4 months. Patient was provided a handwritte n lab order which contains our fax number. If she chooses to go outside of the [facility] system to obtain labwork she was advised to provide our fax number and my informatio n to the lab she will be obtaining labwork from in order to have her labs properly forwarded over for me to review so there is no loss of follow up due to use of outside network. She was also advised to contact our clinic informing us that she has completed her labwork so we are aware we will need to reach out to the appropriat e laboratory to request her results be forwarded to us so I might have the ability to review and make further medical decision making in her case. She voiced understand ing. [id number] Dylan Harding MD [facility] [address] 09/11/2022 11:06:40 09/11/2022 12:29:08 Pain of left shoulder joint 5342416319 4745750 M25.512 Adhesive c apsulitis of left shoulder 9441480192 78064 M75.02 [id number] Dylan Harding MD [address] [address] 10/09/2022 13:59:37 10/09/2022 14:35:16 Adhesive capsulitis of left shoulder 4958781299 56784 M75.02 [id number] Dylan Harding MD [address] [address] 11/27/2022 11:43:55 12/15/2022 11:57:52 Adhesive capsulitis of left shoulder 9840927551 09760 M75.02 Health Concerns Section Related Observation LastModified by Organization Detai ls LastModified Time None Recorded Concern Status LastModified by Organization Details LastModified Time None Recorded Advance Directives Directive None Recorded Payers Insurance Date Sequence Insurance Name Policy Number Policy Reed Covered Member ID Reed Member ID Guarantor Name 06/27/2024 2 [facility] (MEDICARE REPLACEMENT/AD VANTAGE - HMO) [id number] Janet Adams [id number] Janet Adams 06/27/2024 1 [facility] PRIOR TO 01/06/2025 (MEDICAID REPLACEMENT - HMO) [id number] Janet Adams [id number] Janet Adams 06/27/2024 [employer] Janet Adams Janet Adams 06/27/2024 [employer] Janet Adams Janet Adams Notes Date Note Type Note Provider Name and Address Organization Details Recorded Time 08/07/2022 text/html ROS as noted in the HPI 47 yo female comes in for follow up in management of better controlled type 2 DM (A1C of 7.5% down from 10.2%), dyslipidemia. at initial visit in Feb we had patient continue metformin 500 mg daily and jardiance. We continued lantus 28 units once daily at bedtime and patient advised to titrate up by 3 units every 3 days until fasting glucose is running 90-120 mg/dL consistently.Maria Elena ent was advised to follow a 1:8 carb ratio for meals (about 6 units) in addition to correction of 1U:50>150 mg/dl on premeal FS prior to meals. We added trulicity 1.5 mg once weekly. She ran out of trulicity and due tomorrow. we sent for bone density - not completed. She is taking insulin three times a day with humalog and lantus 28 units - She did see Dr. Ramirez on Thursday for her renal function. She goes back to see him. Her glucose average runs from 84 mg/dl up to 294 mg/dLhe is using her dexcom and keeping her patterns more regulated. She missed her lunch humalog today and 263 mg/dL. labs from 04/09/22:a1c 7.5%Cr 1.38 mg/dL with GFR 47 ml/minLFT normalTSH of 2.5 uIU/mLglucose 124 mg/dL Dorian Jay MD [address] [facility], [facility] [address], [place], [address], [place] [facility] [employer] 08/07/2022 15:56:20 OBGyn Episode No OBEpisode recorded.
--- OUTSIDE RECORDS SUMMARY | 2025-03-08 02:15 | XMS_ITS | Patient Health Record ---
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 MEDICAID [address] [place] [address] [id number] Adams, Janet Self - patient is the insured 4 [facility] Family [employer] Plan [address] [place] [phone] [id number] Adams, Janet Self - patient is the insured 1 4 [facility] [address] [address] [id number] Adams, Janet Self - patient is the insured 1 4 MEDICARE PART A [address] [place] [address] [id number] Adams, Janet Self - patient is the insured 4 4 Medical (General) History Medical History History ICD Code Diabetes GERD Surgical History Surgery Date(Month/Year) TOTAL HYSTERECTOMY exploratory laposcopy abdominal aortic repair 03/2022 Hospitalization History Reason Date(Month/Year) MH abdominal aortic 03/2022 Chest Pain (anxiety based r/o cardiac) S eptember 2020
--- OUTSIDE RECORDS SUMMARY | 2025-03-08 02:15 | XMS_ITS | Clinical Summary ---
Author Organization [facility] Facility Address [address] [place] [address] Care Team Providers Care Certified Surgical Technician Name Role Phone Unavailable Primary Care Provider Unavailabl e Allergies Active Allergy Reactions Criticality Noted Date Comments Acetaminophen Nausea And Vomiting High 08/01/2022 States she can take half a pill Bupropion Other (see comments) 05/29/2022 Sulfa Antibiotics Other (see comments) 08/01/2022 In childhood Sulfamethoxazole-Trimeth oprim Other (see comments) High 05/29/2022 In childhood Venlafaxine Other (see comments),Vomiting Low 03/12/2022 Reaction: Vomiting, Medications ALPRAZolam (XANAX) 0.5 MG tablet Take 0.5 mg by mouth in the morning and 0.5 mg in the evening. 06/08/1969 Active aspirin (ST DEREK) 81 MG EC tablet Take 81 mg by mouth in the morning. 06/08/1969 Active atorvastatin (LIPITOR) 20 MG tablet Take 20 mg by mouth 1 (one) time each day 06/08/1969 Active busPIRone (BUSPAR) 30 MG tablet Take 30 mg by mouth in the morning and 30 mg in the evening. 02/28/2022 Active Cholecalciferol 50 MCG (1999) capsule Take 2,000 Units by mouth daily 12/31/2021 Active clopidogrel (PLAVIX) 75 MG tablet Take 75 mg by mouth in the morning. 06/08/1969 Active Dulaglutide (Trulicity) 0.75 MG/0.5ML solution pen-injector Inject 0.75 mg under the skin per week 02/24/2022 Active Empagliflozin 25 MG tablet Take 25 mg by mouth daily 06/08/1969 Active FLUoxetine (PROzac) 20 MG capsule Take 20 mg by mouth in the morning. 02/28/2022 Active FLUoxetine (PROzac) 40 MG capsule Take 40 mg by mouth in the morning. 02/28/2022 Active insulin glargine (LANTUS) 100 UNIT/ML injection Inject 31 Units under the skin 1 (one) time each day 06/08/1969 Active Insulin Lispro 100 UNIT/ML solution Inject 6 Units under the skin 3 times a day 02/11/2022 Active isosorbide dinitrate (ISORDIL) 10 MG tablet Take 10 mg by mouth in the morning and 10 mg in the evening. 06/08/1969 Active lamoTRIgine (LaMICtal) 150 MG tablet Take 150 mg by mouth in the morning and 150 mg in the evening. 02/28/2022 Active losartan (COZAAR) 50 MG tablet Take 50 mg by mouth in the morning. 12/30/2021 Active lurasidone (LATUDA) 40 MG tablet Take 40 mg by mouth in the morning and 40 mg in the evening. 06/08/1969 Active metFORMIN XR (GLUCOPHAGE-XR) 500 MG 24 hr tablet Take 500 mg by mouth 1 (one) time each day with dinner 06/08/1969 Active TRAZODONE HCL PO Take 200 mg by mouth every night 02/28/2022 Active famotidine (PEPCID) 20 MG tablet Take 20 mg by mouth in the morning and 20 mg in the evening. Active Active Problems Problem Noted Date Diagnosed Date Stage 3a chronic kidney disease 09/09/2022 Peripheral vascular disease 09/09/2022 Other cirrhosis of liver 08/05/2022 Arterial hypertension 08/05/2022 Ex-smoker 08/05/2022 Anxiety 08/01/2022 Bipolar disorder 08/01/2022 Cannabis abuse 08/01/2022 Moderate recurrent major depression 08/01/2022 Post-traumatic stress disorder 08/01/2022 Stimulant abuse 08/01/2022 Primary malignant neoplasm of liver 08/01/2022 Tobacco use disorder 06/03/2022 Abdominal aortic aneurysm without rupture 2021 Well controlled type 2 diabetes mellitus 021 Overview (03/08/2024): Replacing diagnoses that were inactivated after the 03/08/24 Regulatory Import Coronary arteriosclerosis 08/09/2015 Resolved Problems Problem Noted Date Diagnosed Date Resolved Date Stage 3b chronic kidney disease 08/05/2022 09/09/2022 Immunizations Immunization Administration Dates Next Due Influenza (IM) Preservative Free 03/22/2009 Tetanus 05/30/2009 Family History Medical History Relation Comments Heart disease Father Cancer Maternal Grandmother Diabetes Maternal Grandmother Heart disease Maternal Grandmother Cancer Mother Heart disease Mother Kidney disease Mother Relation Status Comments Father Alive Maternal Grandmother Mother Social History Tobacco Use Types Packs/Day Years Used Date Smoking Tobacco: Former Cigarettes Q uit: 11/06/2021 Smokeless Tobacco: Never Tobacco Cessation:Counseling Given: Not Answered Alcohol Use Standard Drinks/Week Comments Not Currently 0 (1 standard drink = 0.6 oz pur e alcohol) Comments Unknown Sex and Gender Information Value Date Recorded Sex Assigned at Not on file Legal Sex Female 12:28 PM EST Gender Identity Not on file Sexual Orientation Not on file Last Filed Vital Signs Vital Sign Reading Time Taken Comments Blood Pressure 102/70 12/16/2022 10:44 AM CDT Pulse 96 12/16/2022 10:44 AM CDT Temperature 36.1 C (97 F) 12/16/2022 10:44 AM CDT Respiratory Rate 16 12/16/2022 10:44 AM CDT Oxygen Saturation 99% 12/16/2022 10:44 AM CDT Inhaled Oxygen Concentration - - Weight 57.2 kg (126 lb) 12/16/2022 10:44 AM CDT Height 146.1 cm (4' 9.5) 12/16/2022 10:44 AM CD T Body Mass Index 26.79 12/16/2022 10:44 AM CDT Plan of Treatment Health Maintenance Due Date Last Done Comments Breast Cancer Screening 1974 Hepatitis B Vaccine (1 of 3 - 19+ 3-dose series) 1993 Pneumococcal Vaccine: 50+ Ye ars (1 of 2 - PCV) 1993 Diabetes: Ophthalmology Exam 06/18/2022 Diabetes: Pedal Pulse Checked 06/18/2022 Diabetes: Sensory Foot Exam 06/18/2022 Diabetes: Visual Foot Exam 06/18/2022 Colorectal Cancer Screening: Annual FOBT 2023 Colorectal Cancer Screening: Colonoscopy 2023 Colorectal Cancer Screening: Sigmoidoscopy 2023 Diabetes: Hemoglobin A1C 03/14/2023 023, 08/28/2022, 08/05/2022, Additional history exists Influenza Vaccine (#1) 2025 03/22/2009 Procedures Procedure Name Priority Date/Time Associated Diagnosis Comments HEMOGLOBIN A1C Routine 12/12/2022 Anxiety, not otherwise specified Arterial hypertension Bipolar disorder, not otherwise specified (HCC) Coronary arteriosclerosis, not otherwise specified Moderate recurrent major depression (HCC) Other cirrhosis of liver (HCC) Stage 3a chronic kidney disease (HCC) Type 2 diabetes mellitus well controlled (HCC) Peripheral vascular disease (HCC) from Last 3 Months or Most Recently Relevant to Health Maintenance Results * (ABNORMAL) Hemoglobin A1c (12/12/2022) Hemoglobin A1C 6.5(H) PRINT /EXTERNAL (NON-INTERFACE D LABS) Blood specimen (specimen) Venous blood / Unknown 12/12/2022 us Arjun Quintanilla MD LAB BLOOD ORDERABLES Final R esult PRINT/EXTERNAL (NON-INTERFACED LABS) from Last 3 Months or Most Recently Relevant to Health Maintenance [facility] Adv [facility]
--- OUTSIDE RECORDS SUMMARY | 2025-03-08 02:15 | XMS_ITS | Clinical Summary ---
Author Organization [facility] Address [address] [place] [address] Care Team Providers Care Tile Presser Name Role Phone Elvie Joel MD Primary Care Provider Allergies Active Allergy Reactions Criticality Noted Date Comments Acetaminophen Nausea & Vomiting Low States she can take half a pill Venlafaxine Vomiting Low 03/12/2022 Reaction: Vomiting, Sulfa (Sulfonamide Antibiotics) Unknown In childhood Sulfamethoxazole-Trimeth oprim Unknown In childhood Medications Alcohol Prep Pads pads, medicated 03/07/2022 Active OneTouch Ultra Test strip USE TO TEST BLOOD SUGAR THREE TIMES DAILY 12/18/2021 Active OneTouch Delica Plus Lancet 33 gauge misc USE TO TEST THREE TIMES DAILY 12/18/2021 Active TRUEplus Insulin 1 mL 31 gauge x 5/16 syringe USE TO INJECT INSULIN UNDER THE SKIN UP TO FIVE TIMES DAILY 03/04/2022 Active TRUEplus Insulin 0.3 mL 29 gauge x 1/2 syringe DIRECTED EVERY DAY 12/28/2021 Active metFORMIN XR (GLUCOPHAGE XR) 500 mg 24 hr tablet Take 500 mg by mouth daily 01/30/2022 Active empagliflozin (JARDIANCE) 25 mg tablet Take 25 mg by mouth daily 06/08/1969 Active isosorbide dinitrate (ISORDIL) 10 mg tablet Take 10 mg by mouth 2 (two) times a day 01/06/2022 Active aspirin 81 mg enteric coated tablet Take 81 mg by mouth daily 08/09/2015 Active losartan (COZAAR) 50 mg tablet Take 50 mg by mouth daily 12/30/2021 Active atorvastatin (LIPITOR) 20 mg tablet Take 20 mg by mouth daily 06/08/1969 Active clopidogreL (PLAVIX) 75 mg tablet Take 75 mg by mouth daily 01/23/2022 Active cholecalciferol (VITAMIN D-3) 2000 unit capsule Take 2,000 Units by mouth daily 12/31/2021 Active lamoTRIgine (LaMICtal) 150 mg tablet Take 150 mg by mouth 2 (two) times a day 02/28/2022 Active topiramate (TOPAMAX) 25 mg tablet Take 25 mg by mouth daily 02/28/2022 Active traZODone (DESYREL) 150 mg tablet Take 150 mg by mouth nightly 02/28/2022 Active ARIPiprazole (ABILIFY) 15 mg tablet Take 15 mg by mouth daily 02/28/2022 Active busPIRone (BUSPAR) 30 mg tablet Take 30 mg by mouth 2 (two) times a day 02/28/2022 Active FLUoxetine (PROzac) 40 mg capsule Take 40 mg by mouth daily 02/28/2022 Active FLUoxetine (PROzac) 20 mg capsule Take 20 mg by mouth daily Take with the 40mg capsule 02/28/2022 Active ALPRAZolam (XANAX) 0.5 mg tablet Take 1 tablet by mouth 2 (two) times a day 02/28/2022 Active LANTUS 100 unit/mL vial for injection Inject 31 Units under the skin nightly 02/21/2022 Active HumaLOG 100 unit/mL vial for injection Inject 6 Units under the skin 3 (three) times a day with meals 02/11/2022 Active Trulicity 0.75 mg/0.5 mL pen injector Inject 0.75 mg under the skin every 30 (thirty) days Take on the of the month 02/24/2022 Active naproxen (NAPROSYN) 500 mg tablet Take 1 tablet (500 mg total) by mouth 2 (two) times a day as needed for pain Take with food. 30 tablet 06/26/2024 Active Active Problems Problem Noted Date Diagnosed Date S/P insertion of endovascular thoracic aortic st ent graft 03/14/2022 Stenosis of abdominal aorta 03/10/2022 Overview (03/10/2022): Added automatically from request for surgery [id number] Atherosclerosis of celiac artery 02/06/2022 Overview (02/06/2022): Added automatically from request for surgery [id number] Chronic low back pain 06/19/2016 Disorder of sacroiliac joint 06/19/2016 Fracture of multiple pubic rami 02/17/2016 Disorder of lower leg 02/17/2016 Immunizations Immunization Administration Dates Next Due Influenza, Trivalent, Preservative Free, Intramu scular 03/22/2009 Tetanus toxoid, adsorbed 05/30/2009 Surgical History Surgery Date Site/Laterality Comments TOTAL ABDOMINAL HYSTERECTOMY Total Abdominal Hysterectomy With Removal Of Both Ovaries - Pt believes she was told that her ovaries were almost cancer. 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 Type 2 diabetes mellitus Depression Anxiety Bipolar disorder PTSD (post-traumatic stress disorder) Family History Medical History Relation Name Comments No Known Problems Father Cancer Mother Breast cancer Other 1 Breast Cancer - In Paternal Grandmother, and Sister (Dx Age 35) (Added by TW Conv) Hypertension Other 2 Hypertension - (Added by TW Conv) Diabetes Other 3 Diabetes Mellit us - (Added by TW Conv) Coronary artery disease Other 4 Andrea nary Artery Disease - (Added by TW Conv) Brain cancer Other 5 Brain Cancer - (Added by TW Conv) Relation Name Status Comments Father Mother Other 1 Other 2 Other 3 Other 4 Other 5 Social History Tobacco Use Types Packs/Day Years Used Date Smoking Tobacco: Former Cigarettes Smokeless Tobacco: Never Tobacco Cessation:Counseling Given: Not Answered AUDIT-C Answer Date Recorded Q1: How often do you have a drink containing alcohol? Never 03/14/2022 Q2: How many drinks containi ng alcohol do you have on a typical day when you are drinking? Patient does not drink Frequency of Binge Drinking Not on file 12/2021 Personal Safety Answer Date Recorded Have you ever been in or are you currently in a harmful physical or emotional relationship or is someone making you feel afraid or unsafe? Denies 06/26/2024 Comments No Sex and Gender Information Value Date Recorded Sex Assigned at Not on file Legal Sex Female 4:29 AM MAGAZINE PUBLISHER Gender Identity Not on file Sexual Orientation Not on file Obstetrics History Last Filed Vital Signs Vital Sign Reading Time Taken Comments Blood Pressure 133/76 06/26/2024 8:00 PM MAGAZINE PUBLISHER Pulse 95 06/26/2024 8:00 PM MAGAZINE PUBLISHER Temperature 36.4 C (97.5 F) 06/26/2024 6:13 PM MAGAZINE PUBLISHER Respiratory Rate 16 06/26/2024 8:00 PM MAGAZINE PUBLISHER Oxygen Saturation 96% 06/26/2024 8:00 PM MAGAZINE PUBLISHER Inhaled Oxygen Concentration - - Weight 48.5 kg (107 lb) 06/26/2024 6:13 PM MAGAZINE PUBLISHER Height 144.8 cm (4' 9) 06/26/2024 6:13 PM MAGAZINE PUBLISHER Body Mass Index 23.15 06/26/2024 6:13 PM MAGAZINE PUBLISHER Plan of Treatment Health Maintenance Due Date Last Done Comments Albumin Creatinine Ratio, Urine 1974 Breast Cancer Screening-Mammogram 1974 Colon Cancer Screening-Colonoscopy 1974 Depression Screening 1974 Hemoglobin A1C 1974 Hepatitis C Screening 1974 Dilated Eye Exam 1974 Foot Exam 1974 Hepatitis B Screening 01/29/1992 Regular Well Visit/Exam 18-64 01/29/1992 Pneumococcal vaccine <65 (2 of 2 - PCV) 12/22/2019 12/21/2018 Lipid Panel 12/13/2023 12/12/2022, 08/28/2022 Zoster Vaccine (1 of 2) 01/29/2024 Covid-19 Vaccine (2 - 2024-2 6 season) 2025 03/11/2021 Influenza Vaccine (#1) 2025 3, 04/09/2022, 03/11/2021, Additional history exists eGFR 06/26/2025 06/26/2024, 10/0 02/2022, 03/15/2022, Additional history exists DTaP/Tdap/Td Vaccine (4 - Td or Tdap) 12/21/2028 12/21/2018, 05/30/2009, 06/08/2008 Medical Devices Implanted Type Area Organ Grinder Device Identifier Shelf Expiration Date Model / Serial / Lot [place] Vascular Device Clsr Perclose Prostyle Sut-Mediatd Closure-Repair Sys [id number] - [id number] Implanted:Qty: 1 on 03/14/2022 by Too Rosario MD at [facility] [place] [id number] / / [employer] Visi-Pro 9mm 37mm 135cm Radiopaque Balloon Expand Radial Strength - [id number] Implanted:Qty: 1 on 03/14/2022 by Too Rosario MD at [facility] [employer] 01/17/2024 [id number] / / [id number] Procedures Procedure Name Priority Date/Time Associated Diagnosis Comments EGFR STAT 06/26/2024 6:17 PM MAGAZINE PUBLISHER from Last 3 Months or Most Recently Relevant to Health Maintenance Results * eGFR (06/26/2024 6:17 PM MAGAZINE PUBLISHER) eGFR 76 >=60 mL/min/1. 73 m2 Comment: Interpretive Data Reference Interval Normal >/= 90 mL/min/1.73m2 Mildly decreased* 60 - 89 mL/min/1.73m2 Mildly to moderately decreased 45 - 59 mL/min/1.73m2 Moderately to severely decreased 30 - 44 mL/min/1.73m2 Severely decreased 15 - 29 mL/min/1.73m2 Kidney Failure < 15 mL/min/1.73m2 *Relative to young adult level Estimated glomerular filtration rate is determined by the 2020 CKD-EPI equation recommended by the National Kidney Foundation (A Unifying Approach to GFR Estimation: Recommendations of the NKF-ASK Task Force on Reassessing the Inclusion of Race in Diagnosing Kidney Disease, JASN 2020). The CKD-EPI equation should not be used for patients with unstable renal function and has not been validated in children and those over 70. Current interpretive data was last reviewed 2021. Blood 06/26/2024 6:17 PM MAGAZINE PUBLISHER 06/26/2024 6:35 PM MAGAZINE PUBLISHER us Lawrence Guerra MD PhD LAB BLOOD ORDERABLES Fi nal Result [facility] Department [place] [address] from Last 3 Months or Most Recently Relevant to Health Maintenance Insurance [facility] OTHER Address: [address] [place] [address] DUAL COMPLETE [id number] [facility] Care Teams Tile Presser Relationship Specialty Start Date End Date Elvie Joel MD [address] [address] PCP - General 07/23/16
--- NOTE | 2025-03-08 07:41 | ED.BACK ---
HPI - Back Pain/Injury General Chief Complaint: Back Pain/Injury Stated Complaint: lower back pain Time Seen by Provider: 03/08/25 00:42 History of Present Illness HPI Narrative: 50-year-old otherwise healthy female presenting to the emergency department with lower back pain. She states she was helping up somebody off the floor when she pulled her muscle in her back and heard a loud pop. States that she is able walk but is exquisitely painful in her bilateral low back. No midline tenderness. No neurological complaints. No weakness or deformity. No paresthesias or tingling in her legs. No saddle anesthesias or loss of continence. No significant traumatic injuries and was a pulling maneuver that caused her symptoms. Did not take anything prior to arrival. Related Data Allergies Allergy/AdvReac Type Severity Reaction Status Date / Time sulfamethoxazole (From Allergy Severe Hives Verified 03/08/25 00:05 Bactrim) trimethoprim (From Bactrim) Allergy Severe Hives Verified 03/08/25 00:05 Review of Systems Review of Systems: As reviewed above in HPI Exam Narrative: GENERAL: [Well-appearing, well-nourished, and in no acute distress.] HEAD: [Normocephalic, atraumatic.] EYES: [PERRLA and EOMI.] ENT: Nares clear, no rhinorrhea or epistaxis. Mucous membranes moist. NECK: Supple. CHEST: [Clear to auscultation. No respiratory distress.] HEART: [Regular rate and rhythm]. No murmur heard. [Normal peripheral pulses.] ABDOMEN: [Soft, nondistended], [nontender], [No rigidity or guarding] EXTREMITIES: Normal range of motion. [No edema.] Paraspinal bilateral lower muscle tenderness and spasm, no midline tenderness deformity. Full range of motion of both lower extremities. EHL and FHL 5/5 bilaterally. Straight leg raise test bilaterally elicits pain. Ambulatory with an antalgic gait. SKIN: Warm, dry, no rash. NEURO: [No focal deficits]. Alert and oriented [x3.] PSYCH: [Normal mood and affect.] Course Vital Signs Vital signs: Vital Signs Temperature 36.8 C 03/07/25 22: Pulse Rate 117 H 03/07/25 22:26 Respiratory Rate 18 03/07/25 22: Blood Pressure 175/93 H 03/07/25 22:26 Pulse Oximetry 100 03/07/25 22:26 Oxygen Delivery Room Air 03/07/25 22:26 Temperature 36.8 C 03/07/25 22:26 Pulse Rate 117 H 03/07/25 22:26 Respiratory Rate 18 03/07/25 22:26 Blood Pressure 175/93 H 03/07/25 22:26 Pulse Oximetry 100 03/07/25 22:26 Oxygen Delivery Room Air 03/07/25 22:26 MDM - Back Pain/Injury MDM Narrative Medical decision making narrative: 50-year-old otherwise healthy female presenting to the emergency department with lower back pain. She states she was helping up somebody off the floor when she pulled her muscle in her back and heard a loud pop. States that she is able walk but is exquisitely painful in her bilateral low back. No midline tenderness. No neurological complaints. No weakness or deformity. No paresthesias or tingling in her legs. No saddle anesthesias or loss of continence. No significant traumatic injuries and was a pulling maneuver that caused her symptoms. Did not take anything prior to arrival. Paraspinal bilateral lower muscle tenderness and spasm, no midline tenderness deformity. Full range of motion of both lower extremities. EHL and FHL 5/5 bilaterally. Straight leg raise test bilaterally elicits pain. Ambulatory with an antalgic gait. Patient has no red flag signs or symptoms of cauda equina room conus medullaris. Likely muscle skeletal spasm. CT scan obtained and unremarkable. No fractures or malalignments. She was given pain control medications and significant improvement. Safe for discharge home at this time and given a pain medication regimen and return precautions. Medical Records Attestation: I reviewed the patient's medical records. Imaging Data Attestation: I personally reviewed and interpreted this imaging study as follows: Discharge Plan Discharge Clinical Impression: Strain of lumbar region Patient Disposition: Home Condition: Stable Instructions: Antibiotic Form, Acute Low Back Pain (ED) Additional Instructions: CT scan shows no traumatic injuries. We will send you home with some pain control medications and muscle relaxers. Return with any emergencies. Return to the ER if you have increased pain in your back, you develop lower extremity weakness/numbness/paralysis, you have numbness or tingling in your private parts, or you are unable to control your ability to urinate/stool. Patient Language: Unknown Prescriptions: New lidocaine 5 % adhesive patch,medicated 1 patch topical DAILY Qty: 15 0RF Rx Instructions: leave on most painful area for up to 12 hrs ibuprofen 600 mg tablet 600 mg PO TID PRN (Reason: pain) Qty: 20 0RF methocarbamol 750 mg tablet 750 mg PO TID PRN (Reason: pain) Qty: 20 0RF Follow-up/Referrals: UNKNOWN,DOCTOR [Non-Staff]
== END 2025-03-08 01:15 | disposition home or self-care (01) ==
PROVIDERS: Emergency Provider Student in an Organized Health Care Education/Training Program
DX: S39.012A Strain of muscle, fascia and tendon of lower back, initial encounter (principal); S32.020A Wedge compression fracture of second lumbar vertebra, initial encounter for closed fracture; X50.9XXA Other and unspecified overexertion or strenuous movements or postures, initial encounter; M47.816 Spondylosis without myelopathy or radiculopathy, lumbar region
CPT/HCPCS: 72131; 99284; A9270

== ENCOUNTER 2025-03-17 20:23 | Emergency (ER) | payer MEDICARE, MEDICAID, SELFPAY ==
[2025-03-17 20:28] VITALS: BP 160/82; PULSE 18; RESP 18; TEMP 36.6; O2SAT 99
--- OUTSIDE RECORDS SUMMARY | 2025-03-17 21:48 | XMS_ITS | Clinical Summary ---
Author Organization [facility] Facility Address [address] [place] [address] Care Team Providers Care Wrestling Coach Name Role Phone Unavailable Primary Care Provider [...] major depression 08/01/2022 Post-traumatic stress disorder 08/01/2022 Harmful pattern of use of stimulant 08/01/2022 Primary malignant neoplasm of liver 08/01/2022 [...] Recently Relevant to Health Maintenance [facility]
--- NOTE | 2025-03-17 23:01 | ED_ITS ---
HPI - Back Pain/Injury General Chief Complaint: Back Pain/Injury Stated Complaint: Back pain, need pain med Time Seen by Provider: 03/17/25 21:29 Source: patient and old records reviewed Mode of arrival: ambulatory Limitations: no limitations History of Present Illness HPI Narrative: Patient is a 50-year-old female who presents the ED with report of lower back pain. Patient was seen in the ED here on 03/08 for lower back pain that began after heavy lifting. Overnight read of CT of the lumbar spine showed no acute fracture or malalignment. However re-read by our in-house radiologist showed compression fx of L2 with less than 1/5 height loss. ER provider at that time attempted to contact patient, but was unable to reach her. Patient was prescribed muscle relaxers and lidocaine patches at that time, but reports ongoing persistent pain. PCP notified her of the compression fracture and recommended she come to the ED for further evaluation. She has an appointment with her PCP on 03/22. Denies any new fall or injury. Denies bowel or bladder incontinence, saddle anesthesia, weakness/numbness of lower extremities. Related Data Allergies Allergy/AdvReac Type Severity Reaction Status Date / Time sulfamethoxazole (From Allergy Severe Hives Verified 03/08/25 00:05 Bactrim) trimethoprim (From Bactrim) Allergy Severe Hives Verified 03/08/25 00:05 Review of Systems Review of Systems: All systems reviewed & are unremarkable except as noted in HPI. All systems reviewed & are unremarkable except as noted in HPI and below Exam Narrative: GENERAL: Well appearing, well-nourished, non-toxic, in no acute distress. HEAD: Normocephalic, atraumatic. RESPIRATORY: Airway patent, respirations nonlabored. Clear to auscultation bilaterally, no rales, rhonchi, wheezing. CARDIOVASCULAR: Regular rate and rhythm without murmurs, rubs, or gallops. MUSCULOSKELETAL: Moves all extremities. No gross deformities. Mild diffuse tenderness throughout upper midline lumbar region. No palpable bony deformities. Sensation intact. SKIN: Warm, dry, normal color. NEURO: A&O X3. Speech clear. Cranial nerves II-XII grossly intact. Steady gait. No ataxic movements. PSYCHIATRIC: Appropriate mood and affect. Normal interaction. Course Vital Signs Vital signs: Vital Signs Temperature 97.8 F 03/17/25 20:28 Pulse Rate 18 L 03/17/25 20:28 Respiratory Rate 18 03/17/25 20:28 Blood Pressure 160/82 H 03/17/25 20:28 Pulse Oximetry 99 03/17/25 20:28 Oxygen Delivery Room Air 03/17/25 20:28 Temperature 97.8 F 03/17/25 20:28 Pulse Rate 18 L 03/17/25 20:28 Respiratory Rate 18 03/17/25 20:28 Blood Pressure 160/82 H 03/17/25 20:28 Pulse Oximetry 99 03/17/25 20:28 Oxygen Delivery Room Air 03/17/25 20:28 MDM - Back Pain/Injury MDM Narrative Medical decision making narrative: Patient?s pain is consistent with L2 compression fracture seen on previous imagi ng. Imaging was reviewed by myself. There is no evidence of cord compression or cauda equina. Normal neurologic exams. No red flag symptoms. No symptoms or signs to suggest pain is referred from abdominal or source. She denies any new fall or injury to suggest need for repeat imaging at this time. Patient ambulates with a steady gait and is felt to be a reasonable candidate for continued outpatient management. Will prescribe short course of pain medication for home. Advised to continue [id number] Tylenol/ibuprofen, rice therapy. She has a follow-up appointment with her primary care doctor this week. Will also refer to neurosurgery. Patient in agreement with plan. Discussed strict return precautions, including signs/symptoms of cauda equina. Patient voiced understanding. Discharged in stable condition Medical Records Attestation: I reviewed the patient's medical records. Imaging Data Attestation: I personally reviewed and interpreted this imaging study as follows: Discharge Plan Discharge Clinical Impression: Compression fracture of L2 Qualifiers: Encounter type: subsequent encounter Fracture healing: with routine healing Qualified Code(s): S32.020D - Wedge compression fracture of second lumbar vertebra, subsequent encounter for fracture with routine healing Patient Disposition: Home Condition: Stable Instructions: Antibiotic Form, Vertebral Compression Fracture (ED), Acute Low Back Pain (ED) Additional Instructions: Continue Tylenol and Ibuprofen as needed for pain. You can take 1000 mg of Tylenol and 600 mg of ibuprofen every 6 hours. Oxycodone as needed for more severe pain. You may use ice/heat, lidocaine patches to area of pain. Take muscle relaxers as needed and prescribed. Recommend taking these at night as they may cause sedation. Do not drive, operate heavy machinery, drink alcohol while on muscle relaxers as this may cause further sedation. Follow-up with your primary care doctor and neurosurgery for further evaluation. Return to the ED if you experience worsening or severe pain, recurrent injury, numbness in groin or legs, going to the bathroom without meaning to, unable to keep down food or drink, or any other symptoms of concern. Patient Language: Unknown Prescriptions: New lidocaine 5 % adhesive patch,medicated 1 patch topical DAILY Qty: 15 0RF Rx Instructions: leave on most painful area for up to 12 hrs oxycodone 5 mg tablet 5 mg PO Q6H PRN (Reason: pain) Qty: 12 0RF No Action lidocaine 5 % adhesive patch,medicated 1 patch topical DAILY Qty: 15 0RF Rx Instructions: leave on most painful area for up to 12 hrs ibuprofen 600 mg tablet 600 mg PO TID PRN (Reason: pain) Qty: 20 0RF methocarbamol 750 mg tablet 750 mg PO TID PRN (Reason: pain) Qty: 20 0RF Follow-up/Referrals: Rashawn Rai MD [Physician, Neurosurgery] Referral Note: NEUROSURGERY PHYSICIAN,[facility] [Primary Care Provider, Internal Medicine] Time of Disposition: 23:06
[2025-03-17] MEDS: oxyCODONE HCL (*CRX) 5 MG TAB IR PO (23:34)
== END 2025-03-18 02:16 | disposition home or self-care (01) ==
PROVIDERS: Emergency Provider Physician Assistant
DX: S32.020A Wedge compression fracture of second lumbar vertebra, initial encounter for closed fracture (principal); X50.0XXA Overexertion from strenuous movement or load, initial encounter
CPT/HCPCS: 99283; A9270